=== PATIENT | male | born 1965 | race Caucasian/White ===

== ENCOUNTER 2019-05-07 09:31 | Emergency (ER) | payer BC, SELFPAY ==
[2019-05-07 09:33] VITALS: BP 144/86; PULSE 71; RESP 16; TEMP 37.1; O2SAT 99; BMI 27.8
--- NOTE | 2019-05-07 10:06 | CT_ITS ---
STUDY: CT ABDOMEN AND PELVIS WITH CONTRAST REASON FOR EXAM: Male, 53 years old. BRIGHT RED RECTAL BLEEDING RADIATION DOSAGE (If Supplied By Facility): CTDIvol = ( 14.21 ) mGy, DLP = ( 998.45 ) mGycm TECHNIQUE: Transaxial images were obtained from the dome of the diaphragm to the symphysis pubis with oral contrast. Oral and amp;amp; IV Gastrografin and amp;amp; 100mL Isovue-300 was administered. Sagittal and coronal images were reconstructed. Individualized dose optimization techniques were used for this CT. COMPARISON: None. FINDINGS: The visualized lung bases are unremarkable. The visualized portions of the heart are within normal limits. Normal liver. Normal gallbladder and extrahepatic biliary system. Normal spleen. Normal pancreas. Normal bilateral adrenal glands. There is a 3 mm magnification of lower pole of the right kidney. Normal left kidney. Normal visualized stomach. Normal small intestine. Normal colon. The appendix is visualized and appears normal. Normal abdominal aorta. Normal inferior vena cava. Normal retroperitoneum. Normal urinary bladder. There is mild enlargement of the prostate Normal abdominal wall. There are diffuse degenerative changes of the visualized lumbar spine. CT/Abdomen/Pelvis WITH Contrast IMPRESSION: No bowel obstruction, diverticulitis or colitis. Small right renal calculus. Electronically Signed: Steve Yu MD at 12:09 EST Tel , Service support ,
[2019-05-07 10:53] LABS: Absolute Lymphocyte Count 1.92 X10^3/uL (0.83-4.51); Absolute Neutrophil Count 3.7 X10^3/uL (2.0-7.7); Basophil# 0.05 X10^3/uL; Basophil% 0.8 % (0-1); Eosinophil# 0.05 X10^3/uL; Eosinophils% 0.8 % (0-5); Hematocrit 43.7 % (40-54); Hemoglobin 14.9 g/dL (13.0-16.5); Lymphocyte # 1.92 X10^3/ul (4.0); Lymphocyte % 30.5 % (19-41); Mean Corp Hgb Conc 34.1 g/dL (32-36); Mean Platelet Vol. 8.8 fl (6.2-12.0); Monocyte# 0.58 X10^3/uL; Monocyte% 9.2 % (0-10); NRBC Flagged by Analyzer 0 % (0-5); Neutrophil # 3.69 X10^3/uL (2.7-7.7); Neutrophil % 58.5 % (47-70); Platelet Count 298 K/mm3 (150-450); RBC Distribution Width CV 14.6 % (11.6-14.6); RBC Distribution Width SD 48.3 fl (35.1-43.9); White Blood Count 6.3 K/mm3 (4.4-11.0)
[2019-05-07 11:01] LABS: Prothrombin Time (Protime)PT. 13.2 SECONDS (11.7-14.9)
[2019-05-07 11:02] LABS: Partial Thromboplast Time 31.3 Seconds (24.1-36.2)
[2019-05-07 11:14] LABS: AST(SGOT) 17 U/L (15-37); Alanine Aminotransfer ALT/SGPT 31 U/L (16-61); Alkaline Phosphatase 65 U/L (45-117); Anion Gap 5 (5-15); BUN 9 mg/dL (7-18); BUN/Creat Ratio 9.5 RATIO (10-20); Calcium,Total 9.8 mg/dL (8.5-10.1); Chloride 106 mmol/L (98-107); Creatinine, Serum 0.95 mg/dL (0.70-1.30); EST Glomerular Filtration Rate 87 mL/min (>60); Est Glom Filt Rate - Afr Amer 106 mL/min (>60); Estimated Creatinine Clearance 93.57 ml/min; Globulin 3.9 g/dL (2.2-4.2); Glucose 106 mg/dL (74-106); Protein, Total 7.9 g/dL (6.4-8.2); Sodium Level 140 mmol/L (136-145)
[2019-05-07 12:19] VITALS: RESP 16
--- NOTE | 2019-05-07 14:05 | ED.VISSUMM ---
- ER Visit Summary Date of Service: 05/07/19 Chief Complaint: Rectal bleeding History of Present Illness: The patient is a 53 M who presents with rectal bleeding that is been constant over the past 3 days. Patient states is actually improving. Patient states he had noticed some red blood in his stools. Patient denies any nausea or vomiting. Patient admits to some mild diffuse abdominal pain. Patient describes it as dull. Patient states the pain waxes and wanes. Patient states he had an endoscopy last July and had a polyp removed at that time. Patient states he was also told he had diverticulosis and an internal hemorrhoid at that time. Physical Examination: Vital signs are stable. Patient is afebrile. Patient is in no acute distress. Oral mucosa is pink and moist. Neck is supple. Trachea is midline. There is no JVD noted. Heart was regular rate and rhythm. Lungs are clear and equal bilaterally. Abdomen is soft. Bowel sounds are normal. There is no tenderness. There is no rebound or guarding noted. Skin is warm dry. Cranial nerves II through XII are intact. There are no focal motor or sensory deficits noted. Extremities are intact. There is no calf tenderness or edema. Test Results: CBC and comprehensive metabolic profile within normal limits. PT with INR and PTT were normal. CT scan of the abdomen pelvis was obtained. There is no acute intra-abdominal process. There is no evidence of diverticulitis. This was interpreted by the radiologist and reviewed by myself. Emergency Department Course and Treatment: Patient was feeling better on reevaluation. Patient was instructed to take fiber supplements and stool softeners as needed. Patient was advised of his findings. This may be his internal hemorrhoid that may be causing the bleeding. Patient is hemodynamically stable and has a normal hemoglobin and hematocrit. I do not feel patient needs to be admitted to the hospital at this time. Patient is agreeable with this. Patient was instructed to follow-up with his primary care physician in 5 to 7 days. Patient understood and was agreeable with the plan. All questions were answered. Disposition: Discharge home Impression: Rectal bleeding This note was generated with [employer] dictation software. It may contain incorrect words, spelling, and punctuation that were not noted in review of the chart prior to signing ED Disposition - Plan for ED Patient: Disposition: Home or Assisted Living Diagnosis: Lower gastrointestinal bleeding Instructions: RECTAL BLEED, Stable Referrals: JOHN QUIROGA [Other] - 3-5 Days
[2019-05-07 14:13] VITALS: BP 131/84; PULSE 70; RESP 16; O2SAT 97
--- NOTE | 2019-05-07 14:14 | ED.RN ---
REVIEWED D/C INSTRUCTIONS, FOLLOW UP CARE, AND S/S THAT WOULD WARRANT A RETURN TO THE ED WITH PT. PT VERBALIZED AN UNDERSTANDING AND DENIES FURTHER QUESTIONS FOR THIS RN. PT SKIN P/W/D, RESP EVEN AND UNLABORED, PT A&O X 3, NO DISTRESS NOTED. PT AMBULATED OUT OF ED, GAIT STEADY.
== END 2019-05-07 14:15 | disposition home or self-care (01) ==
PROVIDERS: Emergency Provider Emergency Medicine
DX: K92.1 Melena (principal); I10 Essential (primary) hypertension
CPT/HCPCS: 74177; 80053; 85025; 85610; 85730; 99284; Q9967; A4216